=== PATIENT | female | born 1990 | race Two or more races ===

== ENCOUNTER 2017-11-06 22:24 | Emergency (ER) | payer OTHER ==
[~2017-11-06] VITALS: Ht 154.9 cm; Wt 86.2 kg
[2017-11-06] MEDS ORDERED: MORPHINE SULFATE 4 MG/1 ML DISP.SYRIN IV ONE (22:45)
[2017-11-06] MEDS ORDERED: ONDANSETRON 4 MG/2 ML VIAL IV ONE (22:45)
[2017-11-06] MEDS ORDERED: ONDANSETRON 4 MG/2 ML VIAL ONE (23:02)
[2017-11-06] MEDS ORDERED: MORPHINE SULFATE 4 MG/1 ML DISP.SYRIN ONE ×2 (23:02→23:48)
--- NOTE | 2017-11-06 23:16 | NUR ---
PT IN ROUTE TO CT IN [facility] WITH TRANSPORTER
--- NOTE | 2017-11-06 23:46 | NUR ---
PT BACK FROM CT IN [facility] [place] WITH TRANSPORTER
[2017-11-07] MEDS ORDERED: MORPHINE SULFATE 4 MG/1 ML DISP.SYRIN IV ONE
[2017-11-07] MEDS ORDERED: CLINDAMYCIN HCL 150 MG CAPSULE PO ONE (00:30)
[2017-11-07] MEDS ORDERED: CLINDAMYCIN HCL 150 MG CAPSULE ONE (00:36)
--- NOTE | 2017-11-07 01:59 | NUR ---
Patient discharged to home in stable conditon. Patient reported having much less nose pain prior to discharge. Written and verbal after care instructions given. Patient verbalizes understanding of instructions. Patient able to ambulate unassiste with steady gait. Patient left with personal belongings.
[2017-11-07 04:30] VITALS: BP 138/78
== END 2017-11-07 01:50 | disposition home or self-care (01) ==
LOC: ER 22:27
DX: S02.2XXA Fracture of nasal bones, initial encounter for closed fracture (principal); S02.401A Maxillary fracture, unspecified side, initial encounter for closed fracture; S01.81XA Laceration without foreign body of other part of head, initial encounter; W21.07XA Struck by softball, initial encounter; Y93.89 Activity, other specified; Y99.8 Other external cause status; Y92.89 Other specified places as the place of occurrence of the external cause
CPT/HCPCS: 70450; 70486; A4663; J2270; J2405